=== PATIENT | male | born 1995 ===

== ENCOUNTER 2023-12-21 20:09 | Emergency (ER) | payer SELFPAY ==
[2023-12-21 20:24] VITALS: BP 139/87; PULSE 79; RESP 17; TEMP 36.5; O2SAT 97; BMI 22.4
--- NOTE | 2023-12-21 20:36 | EKG_ITS ---
[address] [address] Test Date: 2023-12-21 Pat Name: Jimmy Santamaria Department: Room: Gender: Male [employer]: : 1995 Requested By: Order Number: [id number] Reading MD: Axel Chance Measurements Intervals [place] Rate: 81 P: 62 CA: 180 QRS: 41 QRSD: 100 T: 0 QT: 358 QTc: 415 Interpretive Statements Normal sinus rhythm Electronically Signed On 12-22-2023 19:52:09 PDT by Axel Chance
[2023-12-21 21:07] LABS: Add Manual Diff / Slide Review NO; Basophils Absolute Auto 0 /uL (0-100); Basophils Percent Auto 0.4 % (0-2); Eosinophils Absolute Auto 300 /uL (0-450); Eosinophils Percent Auto 6.3 % (2-4); Hematocrit 43.5 % (41-53); Hemoglobin 14.9 g/dL (13.5-17.5); Lymphocytes Absolute Auto 1700 /uL (1100-4500); Lymphocytes Percent Auto 33.3 % (25-40); Mean Corpuscular HGB Conc 34.2 % (30-36); Mean Corpuscular Hemoglobin 28.8 PG (26-34); Mean Corpuscular Volume 84.2 fL (80-100); Monocytes Absolute Auto 300 /uL (0-900); Monocytes Percent Auto 6.9 % (3-14); Neutrophils Absolute Auto 2700 /uL (1500-7000); Neutrophils Percent Auto 53.1 % (50-75); Platelet Count 239 X10^3/uL (150-400); Red Blood Cell Count 5.17 X10^6/uL (4.5-5.9); Red Cell Distribution Width 12.7 % (11.6-14.8); White Blood Cell Count 5.1 X10^3/uL (4.5-11.0)
[2023-12-21 21:16] LABS: Alanine Aminotransferase 73 IU/L (<50); Albumin 4.6 g/dL (3.5-5.0); Albumin Globulin Ratio 1.3 (1.0-2.8); Alkaline Phosphatase 101 U/L (38-126); Aspartate Aminotransferase 46 IU/L (17-59); BUN Creatinine Ratio 20.4 (6-22); Bilirubin Total 0.4 mg/dL (0.2-1.3); Blood Urea Nitrogen 19 mg/dL (9-20); Calcium 9.6 mg/dL (8.4-10.2); Carbon Dioxide 28 mmol/L (22-32); Chloride 101 mmol/L (98-107); Estimated Glomerular Filt Rate > 60 mL/min (>60); Globulin 3.5 g/dL (1.7-4.1); Glucose 82 mg/dL (70-100); HEMOLYSIS < 15 (0-50); Sodium 136 mmol/L (137-145); Total Protein 8.1 g/dL (6.3-8.2)
[2023-12-21 23:18] LABS: UR Morphine/Opiate cutoff 300 Negative (Negative); Ur Creatinine Normal (Normal); Ur Specific Gravity Normal (Normal); Urine Amphetamines Negative (Negative); Urine Barbiturates Negative (Negative); Urine Benzodiazepines Negative (Negative); Urine Cocaine Negative (Negative); Urine MDMA Negative (Negative); Urine Methadone Negative (Negative); Urine Methamphetamines Negative (Negative); Urine Oxycodone Negative (Negative); Urine Phencyclidine Negative (Negative); Urine Tetrahydrocannabinol Negative (Negative); Urine Tricyclic Antidepressant Negative (Negative); Urine pH Normal (Normal)
[2023-12-21 23:35] VITALS: PULSE 69; O2SAT 100
[2023-12-21 23:43] VITALS: BP 123/79; PULSE 73; O2SAT 99
[2023-12-21] MEDS: SODIUM CHLORIDE 0.9% 1,000 ML 1000 ML IV (23:46)
[2023-12-22] VITALS: BP 119/76; PULSE 75; O2SAT 99
[2023-12-22 00:30] VITALS: BP 122/80; PULSE 71; O2SAT 99
[2023-12-22 01:00] VITALS: BP 116/76; PULSE 73; RESP 18; O2SAT 98
[2023-12-22 01:35] VITALS: BP 134/76; PULSE 71; O2SAT 99
--- NOTE | 2023-12-22 01:52 | ED.GENADULT ---
HPI - General Adult General Chief complaint: Dizziness Stated complaint: dizzy, visual changes Time Seen by Provider: 12/22/23 00:19 Source: patient Mode of arrival: Ambulatory History of Present Illness HPI narrative: 28-year-old gentleman with a history of trigeminal neuralgia has had a rhizotomy in the past. Followed by Neurology over [facility]. About a year ago he has been given carbamazepine to help with the trigeminal pain and it seemed to cause vertigo. He is recently restarted the carbamazepine. This morning around 9:00 a.m. he took 400 mg of carbamazepine and around noon began feeling increasing vertigo. Was trying to drive home but to dizzy actually drive home. This is not positional. He finds that he is having difficulty walking due to the vertigo. He has not nauseated. Does not notice any tinnitus and no visual changes no other neurologic complaints Related Data Allergies Allergy/AdvReac Type Severity Reaction Status Date / Time chocolate Allergy Verified 12/21/23 20:41 Patient History Social History Smoking Status: Never smoker Smoking Status: Never smoker Substance Use Type: does not use Exam Initial Vital Signs Initial Vital Signs: Vital Signs Temperature 97.7 F 12/21/23 20:24 Pulse Rate 79 12/21/23 20:24 Respiratory Rate 17 12/21/23 20:24 Blood Pressure 139/87 12/21/23 20:24 Pulse Oximetry 97 12/21/23 20:24 Oxygen Delivery Method Room Air 12/21/23 20:24 General: Healthy appearing, Well-nourished well-developed HEENT: Moist mucous membranes, normal sclera with reactive pupils, tympanic membranes are pearly means Neck: No cervical adenopathy Respiratory: Lungs are clear to auscultation, no wheezing no rales no rhonchi. Full and symmetrical air movement Cardiac: Regular rate and rhythm no murmurs no bruits Abdomen: Soft, nontender, good bowel tones, no flank pain Skin: Warm and dry, no rashes Neurologic: No nystagmus, no provoked vertigo, he does have a slightly wide-based gait secondary to vertigo. No weakness Extremities: No trauma, well perfused Psych: Cooperative, appropriate insight and affect Course Orders Ordered: ED Orders 12/21/23 20:30 EKG-12 Lead Stat 12/21/23 20:51 Complete Blood Count AUTO DIFF Stat Comprehensive Metabolic Panel Stat 12/21/23 23:06 Urine Drug Screen, Rapid Stat Discontinued Medications Sodium Chloride (Normal Saline 0.9%) 1,000 mls @ 1,000 mls/hr IV BOLUS ONE Stop: 12/21/23 21:43 Last Infusion: 12/22/23 00:59 Dose: Infused Documented By: Admin: 12/21/23 23:46 Dose: 1,000 mls/hr Documented By: JEANINE Vital Signs Vital signs: Vital Signs - 8 hr 12/21/23 20:24 12/21/23 23:35 12/21/23 23:43 Temperature 97.7 F Pulse Rate 79 69 73 Respiratory Rate 17 Blood Pressure 139/87 Pulse Oximetry 97 100 99 Oxygen Delivery Method Room Air 12/21/23 23:43 12/22/23 00:00 12/22/23 00:00 Temperature Pulse Rate 75 Respiratory Rate Blood Pressure 123/79 119/76 Pulse Oximetry 99 Oxygen Delivery Method 12/22/23 00:30 12/22/23 00:30 12/22/23 01:00 Temperature Pulse Rate 71 73 Respiratory Rate Blood Pressure 122/80 Pulse Oximetry 99 98 Oxygen Delivery Method 12/22/23 01:00 Temperature Pulse Rate Respiratory Rate 18 Blood Pressure 116/76 Pulse Oximetry Oxygen Delivery Method Medical Decision Making Lab Data 12/21/23 20:51 12/21/23 20:51 Labs: Lab Results 12/21/23 12/21/23 Range/Units 20:51 23:06 WBC 5.1 (4.5-11.0) X10^3/uL RBC 5.17 (4.5-5.9) X10^6/uL Hgb 14.9 (13.5-17.5) g/dL Hct 43.5 (41-53) % MCV 84.2 (80-100) fL MCH 28.8 (26-34) PG MCHC 34.2 (30-36) % RDW 12.7 (11.6-14.8) % Plt Count 239 (150-400) X10^3/uL Neut % (Auto) 53.1 (50-75) % Lymph % (Auto) 33.3 (25-40) % [place] % (Auto) 6.9 (3-14) % Eos % (Auto) 6.3 H (2-4) % Baso % (Auto) 0.4 (0-2) % Neut # (Auto) 2700 (6607-2597) /uL Lymph # (Auto) 1700 (5729-4118) /uL [place] # (Auto) 300 (0-900) /uL Eos # (Auto) 300 (0-450) /uL Baso # (Auto) 0 (0-100) /uL Sodium 136 L (137-145) mmol/L Potassium 4.0 (3.4-5.1) mmol/L Chloride 101 (98-107) mmol/L Carbon Dioxide 28 (22-32) mmol/L BUN 19 (9-20) mg/dL Creatinine 0.93 (0.66-1.25) mg/dL Estimated GFR > 60 (>60) mL/min BUN/Creatinine Ratio 20.4 (6-22) Glucose 82 (70-100) mg/dL Calcium 9.6 (8.4-10.2) mg/dL Total Bilirubin 0.4 (0.2-1.3) mg/dL AST 46 (17-59) IU/L ALT 73 H (<50) IU/L Alkaline Phosphatase 101 (38-126) U/L Total Protein 8.1 (6.3-8.2) g/dL Albumin 4.6 (3.5-5.0) g/dL Globulin 3.5 (1.7-4.1) g/dL Albumin/Globulin Ratio 1.3 (1.0-2.8) U Opiates 300ng/mL cut Negative (Negative) Ur Oxycodone Screen Negative (Negative) Urine Methadone Screen Negative (Negative) Ur Barbiturates Screen Negative (Negative) U Tricyclic Antidepress Negative (Negative) Ur Phencyclidine Scrn Negative (Negative) Ur Amphetamines Screen Negative (Negative) U Methamphetamines Scrn Negative (Negative) Ur MDMA Scrn (Ecstasy) Negative (Negative) U Benzodiazepines Scrn Negative (Negative) Urine Cocaine Screen Negative (Negative) U Marijuana (THC) Screen Negative (Negative) Urine pH Normal (Normal) Urine Specific [place] Normal (Normal) Ur Creatinine Normal (Normal) Urine Dip Bedside Urine Glucose Negative Bedside Urine Bilirubin - Negative Bedside Urine Ketone - Negative Urine Specific [place] 1.005 Bedside Urine Occult Blood - Negative Bedside Urine pH 6.0 Bedside Urine Protein - Negative Bedside Urine Urobilinogen - Negative Bedside Urine Nitrite - Negative Bedside Urine Leukocytes - Negative Esterase Point of care testing: Urine Dip Bedside Urine Glucose Negative Bedside Urine Bilirubin - Negative Bedside Urine Ketone - Negative Urine Specific [place] 1.005 Bedside Urine Occult Blood - Negative Bedside Urine pH 6.0 Bedside Urine Protein - Negative Bedside Urine Urobilinogen - Negative Bedside Urine Nitrite - Negative Bedside Urine Leukocytes - Negative Esterase MDM Narrative Medical decision making narrative: CC: Vertigo Complicating co-morbidities: History of trigeminal neuralgia, increasing forgetfulness for which neuropsychiatric testing has been ordered but not yet completed(he forgot to schedule the appointment), Data collected from: patient, partner Medical records reviewed: Medical records from [facility] are reviewed including primary care notes, physical therapy notes for back pain, neurology notes regarding his short-term memory loss/trigeminal neuralgia Differential considered: Medication side effect, viral syndrome, BPV, tumor/mass (most recent head CT was November of 2022 in anticipation of rhizotomy for his trigeminal neuralgia) Exam documented above, pertinent findings include: Patient does have a wide-based gait is slightly unsteady with walking, no weakness otherwise, tympanic membranes are pearly means he has no nystagmus or visual changes Lab Test results independently reviewed as above. Pertinent findings: CBC is unremarkable Chemistries are reassuring Urine toxicology screen is unremarkable Independently reviewed EKG: EKG shows a rate of 81, normal sinus rhythm no acute ischemic changes Treatments: 25 mg of oral meclizine Discussion: 28-year-old gentleman complains of vertigo increasing over the course of today. Recently restarted 400 mg b.i.d. of carbamazepine. A year ago when he had tried this for his trigeminal neuralgia found it helpful for pain control but it did cause vertigo. I suspect that this is the current cause of his symptoms. There was no sign of benign positional issues, stroke, viral infection, middle ear infection, recreational drug use, significant electrolyte abnormalities or anemia. Reviewed with him the meclizine given in the emergency department. I did recommend he stop the carbamazepine the next couple of days and see if the vertigo improves. Referred him back to his neurologist for treatment than of his trigeminal neuralgia. At this point there was no indication for hospitalization or advanced imaging. He is safe for discharge Discharge Plan Departure Patient Disposition: Home Clinical Impression: Vertigo Adverse reaction to drug Qualifiers: Encounter type: initial encounter Qualified Code(s): T50.906O - Adverse effect of unspecified drugs, medicaments and biological substances, initial encounter Instructions: DI for Vertigo Activity Restrictions/Additional Instructions: Thank you for coming in today Your blood work was very reassuring. There was no evidence of viral infection, bacterial infection, significant electrolyte abnormalities, anemia. Your clinical exam does not show middle ear infection, there was no evidence of a stroke. Unfortunately, I am concerned that your carbamazepine, which helps with her trigeminal neuralgia, is causing this vertigo. I would recommend that you hold the carbamazepine for the next couple of days and see how you feel. You will need to follow up with your primary care physician and neurologist Referrals: Meeta,MD Cooper [Primary Care Provider] - Stand Alone Forms: Patient Portal/API
[2023-12-22 02:00] VITALS: BP 123/80; PULSE 70; RESP 16; O2SAT 99
[2023-12-22] MEDS: MECLIZINE HCL 12.5 MG TABLET 25 MG PO (02:27)
[2023-12-22 02:30] VITALS: PULSE 72; RESP 18; O2SAT 99
== END 2023-12-22 02:34 | disposition home or self-care (01) ==
PROVIDERS: Emergency Provider Emergency Medicine
DX: R42 Dizziness and giddiness (principal); T50.905A Adverse effect of unspecified drugs, medicaments and biological substances, initial encounter
CPT/HCPCS: 36415; 80053; 80305; 81003; 85025; 93005; 96360; 99284